=== PATIENT | female | born 1995 | race African-American/Black ===

== ENCOUNTER → 2018-08-14 | Outpatient (CLI) | payer OTHER ==
[~2018-08-14] MED LIST: CONRAY-43 43% 50ML VIAL (Q9960) As Ordered ONE; LIDOCAINE 1% MDV 20ML VIAL As Ordered ONE; TRIAMCINOLONE ACETONIDE SUSP 40 MG/ML VIAL (J3301) As Ordered ONE
--- NOTE | 2018-08-15 09:31 | REP ---
RIGHT HIP INJECTION The procedure was performed under the direct supervision of Dr. Herman. The benefits and risks including but not limited to pain infection and bleeding and anaphylaxis were explained to the patient and informed consent was obtained. The right femoral neck was localized using fluoroscopic guidance. The skin was prepped and draped in a sterile fashion. 1% lidocaine was used as a local anesthetic. Using fluoroscopic guidance a 22-gauge spinal needle was inserted and advanced to the femoral neck. 0.5 ml of Conray 43 was injected to verify placement. 10 ml of a solution containing 9 ml of 1% Xylocaine and 1 ml of Kenalog 40 mg was injected. The needle was then removed. The patient tolerated the procedure well and there were no immediate complications. Less than six seconds of fluoro time was utilized for this procedure. Reviewed by SHANEL Lee 08/14/2018 04:37 P Electronically Signed by Fady Herman MD 08/15/2018 09:22 A
== END ==
LOC: M RADPRO 09:14
PROVIDERS: ATTEND Physician Assistant
DX: M25.551 Pain in right hip (principal)
CPT/HCPCS: 20610; 77002; J3301; Q9960

== ENCOUNTER → 2020-02-03 | Outpatient (CLI) | payer OTHER ==
[~2020-02-03] MED LIST changes: +BUPIVACAINE HCL 0.5% 10ML VIAL As Ordered ONE; -CONRAY-43 43% 50ML VIAL (Q9960) As Ordered ONE; +ISOVUE-300 61% 50ML VIAL As Ordered ONE
--- NOTE | 2020-02-03 17:17 | REP ---
PROCEDURE NAME: FLUORO GUID FOR NEEDLE PLACEMT SEDATION: None CLINICAL INFORMATION: BI HIP SONJA SYNDROME WITH RIGHT HIP LABRAL TEAR PHYSICIAN: Neena Holloway PROCEDURE DESCRIPTION: The procedure was performed by SHANEL Lemons, under the direct supervision of Dr. Herman. The risks and benefits of the procedure were explained to the patient and an informed consent was obtained both verbally and written. Directly prior to the start of the procedure a formal time-out was completed in the procedure room. The left femoral neck joint space was localized using fluoroscopic guidance. The skin was prepped and draped in a sterile fashion. 5 mL of 1% lidocaine 10 milligrams/milliliter was used as a local anesthetic. Using fluoroscopic guidance a 25 gauge needle was inserted and advanced to the left femoral neck joint space. 1 mL of Isovue 300 was used to verify placement. 5 mL of a solution containing 2 mL of 0.5% bupivacaine, 2 mL of 1% lidocaine and 10 milligrams/milliliter, and 1 mL of Kenalog 40 milligrams/milliliter was injected into the joint space. The needle was removed and hemostasis was achieved. The patient tolerated the procedure well and there were no immediate complications. 0.2 minutes of fluoroscopy time was utilized for this procedure. ESTIMATED BLOOD LOSS: Less than 1 mL COMPLICATIONS: None CONCLUSION: Successful left hip intra-articular injection <Electronically signed by Fady Herman > 02/03/20 [id number]
== END ==
LOC: M RADPRO 15:21
PROVIDERS: ATTEND Orthopaedic Surgery
DX: M24.852 Other specific joint derangements of left hip, not elsewhere classified (principal)
CPT/HCPCS: 20610; 77002; J3301; Q9967

== ENCOUNTER → 2020-05-27 | Outpatient (REF) | payer OTHER ==
[2020-05-27 11:59] LABS: C REACTIVE PROTEIN QUANTITATIV < 0.30 MG/DL (0.00-0.30); COMPLEMENT C3 128 MG/DL (90-180); COMPLEMENT C4 33 MG/DL (10-40); CPK CREATINE PHOSPHOKINASE 101 U/L (26-192); RHEUMATOID FACTOR QUANT < 10.0 IU/ML (<15.0)
[2020-06-02 23:36] LABS: ANGIOTENSIN 1 CONVERTING ENZYM 24 U/L (14-82); ANTI DS-DNA AB Negative (Negative); BETA-2 GLYCOPROTEIN I ABY IGA <9 (0-25); BETA-2 GLYCOPROTEIN I ABY IGG <9 (0-20); BETA-2 GLYCOPROTEIN I ABY IGM <9 (0-32); CARDIOLIPIN IGA ANTIBODY <9 APL U/mL (0-11); CARDIOLIPIN IGG ANTIBODY <9 GPL U/mL (0-14); CARDIOLIPIN IGM ANTIBODY 11 MPL U/mL (0-12); CYCLIC CITRULLINATED PEPTIDE 4 units (0-19); HLA-B27 Negative (.); RNP ANTIBODY 0.3 AI (0.0-0.9); SMITHS ANTIBODY < 0.2 AI (0.0-0.9)
== END ==
LOC: M SFHCRHEU 10:05
PROVIDERS: ATTEND Internal Medicine
DX: R76.8 Other specified abnormal immunological findings in serum (principal); M25.50 Pain in unspecified joint
CPT/HCPCS: 81374; 82164; 82550; 85613; 85652; 85732; 86140; 86146; 86147; 86160; 86200; 86225; 86255; 86431; G0463